=== PATIENT | female | born 1995 | race African-American/Black ===

== ENCOUNTER 2021-05-08 21:39 | Emergency (ER) | payer OTHER ==
[~2021-05-08] VITALS: Ht 160 cm; Wt 47.6 kg
[2021-05-08] MEDS ORDERED: TESSALON PERLE100 MG PO (22:50)
[2021-05-08 22:56] VITALS: BP 131/77
== END 2021-05-08 22:56 | disposition home or self-care (01) ==
LOC: ER 21:39
DX: J06.9 Acute upper respiratory infection, unspecified (principal)